=== PATIENT | male | born 2000 | race Caucasian/White ===

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

== ENCOUNTER 2024-12-17 18:53 | Observation (INO) ==
[2024-12-17 19:55] LABS: BASOPHILS % (AUTO) 0.2 % (0.0-3.0); HEMATOCRIT 53.1 % (42.0-52.0); HEMOGLOBIN 19.5 g/dl (14.0-18.0); IMMATURE GRANULOCYTE % (AUTO) 0.2 % (0.0-5.0); LYMPHOCYTES # (AUTO) 0.4 K/uL (0.60-3.4); LYMPHOCYTES % (AUTO) 7.1 (10.0-50.0); MEAN CORPUSCULAR HEMOGLOBIN 31.6 pg (27.0-31.0); MEAN CORPUSCULAR HGB CONC 36.7 (31.8-35.4); MEAN CORPUSCULAR VOLUME 85.9 fl (80.0-94.0); MONOCYTES # (AUTO) 0.4 K/uL (0.4-2.0); MONOCYTES % (AUTO) 6.8 (0-10); NEUTROPHILS % (AUTO) 85.7 % (42.2-75.2); PLATELET COUNT 180 10^3/uL (140-440); RDW COEFFICIENT OF VARIATION 12.3 % (11.6-14.8); RED BLOOD COUNT 6.18 10^6/ul (4.70-6.10); WHITE BLOOD COUNT 5.88 K/ul (4.2-10.2)
--- NOTE | 2024-12-17 20:00 | ED.PDOC ---
General ED Provider: Dr. JOSUÉ WARD DO Chief Complaint: Nausea/Vomiting Stated Complaint: This is a 24-year-old gentleman history of mild autism type 1 diabetes with insulin pump and cerebral palsy who comes to the emergency department with nausea vomiting and ketones. His sugars have been in the 240 range. According to mom she made some store-bought meatballs last night which seems to been a trigger. Father has similar and that he has been having diarrhea and some mild abdominal cramping after eating. Patient has not been able to keep anything down. He denies any diarrhea no fever or chills no abdominal pain but some sore throat from his retching. Time Seen by Provider: 12/17/24 19:36 Information Source: Patient and Family Exam Limitations: No limitations Primary Care Provider: RAJINDER QUIÑONES Nursing and Triage Documentation Reviewed and Agree: Yes What is Opioid Naive?: *Opioid Naive implies the patient is not already taking opioids or not chronically receiving opioids on a daily basis. *PRN dosing is not "usually" associated with tolerance. *Patients are at higher risk of over-sedation and aspiration. What is Opioid Tolerant?: *Opioid Tolerance implies less than the expected response to an opioid. *Acquired tolerance is defined by the patient taking 60mg of oral morphine daily (or equianalgesic dose of another opioid) for 1 week or more. *Often associated with chronic pain. *May take more than usual dose to achieve desired pain control. Review of Systems Review Of Systems Constitutional: Reports No symptoms Ears, Nose, Mouth, Throat: Reports No symptoms Respiratory: Reports No symptoms Cardiac: Reports No symptoms GI: Reports Nausea and Vomiting : Reports No symptoms Musculoskeletal: Reports No symptoms Skin: Reports No symptoms Neurological: Reports No symptoms Endocrine: Reports No symptoms Hematologic/Lymphatic: Reports No symptoms All Other Systems: Reviewed and Negative [facility] Social History Smoking and tobacco status: Never smoker Physical Exam Physical Exam Appearance: Reports Well-appearing, No pain distress and Well-nourished Eyes: Reports RAZIA and EOMI ENT: Reports Oropharynx normal Neck: Supple Respiratory: Reports Airway patent, Breath sounds clear and Breath sounds equal Cardiovascular: Reports RRR, No murmur and Tachycardia GI/: Reports Soft, Nontender and No masses Musculoskeletal: Reports Normal strength and No edema Skin: Reports Warm and Dry Neurological: Reports Sensation intact, Alert and Oriented Psychiatric: Reports Affect appropriate Interpretation EKG Interpretation EKG Interpretation By: ED Physician Time of EKG #1: 21:00 (Twelve-lead EKG is read by me shortly after obtaining sinus rate of 119 with normal axis and intervals there is some diffuse rate related T wave abnormalities no evidence of acute ischemia or infarct no STEMI) Rate: Tachy Critical Care Note Critical Care Note Total Critical Care Time (mins): 50 Comments: I was called to the bedside for urgent evaluation of the patient for an apparent life-threatening event. I arrived to find the patient patricia, type I diabetic, concern for DKA During my initial evaluation I found the patient to be critically Ill and in need of my immediate attention to prevent further deterioration of their condition More than one body system was considered at risk with todays visit. The following are the primary systems identified: Metabolic, GI, cardiac During the patients ED visit I repeated re-evaluated the patient and their clinical condition reviewed laboratory testing and radiology images and intervening when needed. Hydrating patient treating his nausea spoke with his early intervention school psychologist As a result of the patients clinical condition and presenting problem I arranged for observation The total amount of my Critical Care time during the patients course in the ED was a minimum of 50 minutes, this excluded any time spent on other services or procedures Course Course 12/17/24 19:43 12/17/24 22:05 Orders, Labs, Meds: Lab Review 12/17/24 12/17/24 12/17/24 19:43 21:55 22:05 WBC 5.88 RBC 6.18 H Hgb 19.5 H Hct 53.1 H MCV 85.9 MCH 31.6 H MCHC 36.7 H RDW Coeff of Kiarra 12.3 Plt Count 180 Immature Gran % (Auto) 0.2 Neut % (Auto) 85.7 H Lymph % (Auto) 7.1 L Clarke % (Auto) 6.8 Eos % (Auto) 0.0 Baso % (Auto) 0.2 Neut # (Auto) 5.0 Lymph # (Auto) 0.4 L Clarke # (Auto) 0.4 Eos # (Auto) 0.0 Baso # (Auto) 0.0 Immature Gran # (Auto) 0.0 Sodium 143.9 143.9 Potassium 3.95 4.07 Chloride 110.5 H 114.1 H Carbon Dioxide 20.2 L 22.7 Anion Gap 17.15 11.17 BUN 19.8 18.3 Creatinine 0.81 0.81 Estimated GFR (MDRD) 117.00 117.00 BUN/Creatinine Ratio 24.44 22.59 Glucose 150.7 H 100.6 D Lactic Acid 1.07 Calcium 9.20 7.86 L Total Bilirubin 1.56 H AST 25.5 ALT 14.7 Alkaline Phosphatase 85.0 Total Protein 7.19 Albumin 4.67 Globulin 2.52 Albumin/Globulin Ratio 1.85 Lipase 31.5 Urine Color Yellow Urine Clarity Clear Urine pH 5.5 Ur Specific [place] 1.025 Urine Protein Negative Urine Glucose (UA) Negative Urine Ketones 3+ H Urine Blood Negative Urine Nitrite Negative Urine Bilirubin 1+ H Urine Urobilinogen 0.2 Ur Leukocyte Esterase Negative Orders Category Date Time Status ADMIT PATIENT INPATIENT .TO [facility] (MONITORED BED) ADMISSION 12/18/24 00:21 Ordered EKG-(ED ONLY) Stat CARDIO 12/17/24 20:14 Completed BLOOD GLUCOSE MONITORING (MED/SURG) Q4HR CARE 12/18/24 00:21 Ordered GIVE HS SNACK 2100 CARE 12/18/24 00:24 Ordered REMINDER: Give Insulin if Needed Q4HR CARE 12/18/24 00:21 Ordered TELEMETRY MONITORING TELE CARE 12/18/24 00:23 Ordered VITAL SIGNS Q4HR CARE 12/18/24 00:21 Ordered VTE PREVENTION .SCD 24 Hours CARE 12/18/24 00:21 Ordered CLEAR LIQUID DIET DIETARY 12/18/24 Breakfast Ordered HS SNACK DIETARY 12/18/24 Dinner Ordered BMP [BASIC METABOLIC PANEL] Stat LAB 12/17/24 22:05 Completed CBC W/ AUTO DIFF Stat LAB 12/17/24 19:43 Completed CBC W/ AUTO DIFF Timed LAB 12/18/24 06:00 Ordered CMP [COMPREHENSIVE METABOLIC PANEL] Stat LAB 12/17/24 19:43 Completed COMPREHENSIVE METABOLIC PANEL Timed LAB 12/18/24 06:00 Ordered LACTIC ACID Stat LAB 12/17/24 19:43 Completed LIPASE Stat LAB 12/17/24 19:43 Completed UA [URINALYSIS C & S IF INDICATED] Stat LAB 12/17/24 21:55 Completed Acetaminophen [Tylenol] Meds 12/18/24 00:21 Ordered 650 mg PO Q4H PRN Dextrose 5 %-0.45 % NaCl [Dextrose 5%-1/2Ns IV Solution Meds 12/18/24 00:30 Ordered ] 1,000 ml IV 125 mls/hr Ondansetron HCl/Pf [Zofran Sdv] Meds 12/18/24 00:21 Ordered 4 mg IVP Q4HR PRN Ondansetron HCl/Pf [Zofran Sdv] Meds 12/17/24 19:39 Discontinued 8 mg IVP ONCE STA Potassium Chloride/D5-0.45NACL [D5%-1/2Ns-KCl 10 Meq/l Meds 12/17/24 23:50 Active IV Bri] 1,000 ml IV 125 mls/hr Sodium Chloride 0.9% [Sodium Chloride] 1,000 ml Meds 12/17/24 19:39 Discontinued IV BOLUS Sodium Chloride 0.9% [Sodium Chloride] 1,000 ml Meds 12/17/24 21:03 Discontinued IV BOLUS Sodium Chloride 0.9% [Sodium Chloride] 1,000 ml Meds 12/17/24 22:28 Discontinued IV BOLUS RESUSCITATION STATUS Routine OTHERS 12/18/24 00:21 Ordered Medications Generic Name Dose Route Start Last Admin Trade Name Freq PRN Reason Stop Dose Admin Potassium Chloride/Dextrose/Sod Cl 1,000 mls @ 125 mls/hr 12/17/24 23:50 12/18/24 00:07 D5%-1/2ns-Kcl 10 Meq/L Iv Bri IV 12/18/24 07:49 125 mls/hr .Q8H ONE Administration Discontinued Medications Generic Name Dose Route Start Last Admin Trade Name Freq PRN Reason Stop Dose Admin Sodium Chloride 1,000 mls @ 1,000 mls/hr 12/17/24 19:39 12/17/24 21:16 Sodium Chloride IV 12/17/24 20:38 Infused BOLUS ONE Infusion Sodium Chloride 1,000 mls @ 1,000 mls/hr 12/17/24 21:03 12/17/24 22:30 Sodium Chloride IV 12/17/24 22:02 Infused BOLUS ONE Infusion Sodium Chloride 1,000 mls @ 1,000 mls/hr 12/17/24 22:28 12/17/24 23:30 Sodium Chloride IV 12/17/24 23:27 Infused BOLUS ONE Infusion Ondansetron HCl 8 mg 12/17/24 19:39 12/17/24 20:16 Ondansetron Hcl/Pf 4 Mg/2 Ml Sdv IVP 12/17/24 19:40 8 mg ONCE STA Administration 2240 after speaking with the patient's early intervention school psychologist early as the covering provider decided to repeat the basic metabolic profile patient had borderline elevated anion gap at 17 repeat now is 11. Positive ketones in the urine but I do believe that it is related to starvation and not DKA. Currently feeding the patient. Third liter of fluid at the request of his early intervention school psychologist. 2358 Patient's anion gap is improved to 11 I believe the patient's ketones are likely result of starvation and not DKA. However after third liter of fluid the patient remains ketotic in his urine. Remains tachycardic. Case discussed with hospitalist provider who will observation overnight bridge orders placed including fluids Zofran clear liquid diet and repeat laboratory testing for the morning During the patients stay in the Emergency Department, and after a physical exam focused on the patients chief complaint. I have concluded that the patients condition warrants inpatient admission/observation at this time. This decision was made in conjunction with testing done in the ED and after discussing the need for admission with the patient and any family present. This decision was made in conjunction with any testing done, physical exam and information provided by the patient and any family present. I took into consideration discharge but feel that either the patients condition, social supports, access to aftercare, and/or safety justify admission at this time. I have discussed this case with the admitting physician Care was assumed by admitting provider at the time the admission request was placed. I was available for emergencies after that point or if specifically identified here: none This chart was completed using voice recognition dictation software. Please excuse any errors of wind energy mechanic including grammatical, punctuation and spelling errors. Please contact me with any questions regarding this chart Vital Signs: Temp Pulse Resp BP Pulse Ox 12/17/24 18:59 97 F L 138 H 16 110/77 93 L Discharge Plan Discharge Patient Disposition: PLACED OBSERVATION Discharge Problem: Nausea, Vomiting, Acute hyperglycemia, Ketosis, Tachycardia Prescriptions: No Action citalopram [Celexa] 20 MG tablet 20 mg PO QAM albuterol sulfate 8.5 GM HFA aerosol inhaler 2 puff INH PRN PRN (Reason: Asthma) Humalog U-100 Insulin 100 UNIT/ML cartridge 1 units SQ DIRECTED Patient Comments: SS insulin with meals omeprazole magnesium [Prilosec OTC] 20 MG tablet,delayed release (DR/EC) 20 mg PO QAM clonidine HCl 0.1 MG tablet extended release 12 hr 0.2 mg PO BEDTIME venlafaxine [Effexor XR] 37.5 MG capsule,extended release 24hr 75 mg PO DAILY clonidine HCl 0.1 MG tablet 0.1 mg PO DAILY PRN (Reason: Agitation) Flonase Sensimist 9.9 ML spray,suspension 1 spray intranasal DAILY Rx Instructions: 1 spray each notril Mounjaro 5 mg/0.5 mL pen injector 5 mg SUBCUT WEEKLY Patient Comments: [NO ORIGINAL SIG] venlafaxine 150 mg capsule,extended release 24hr 300 mg PO DAILY doxycycline monohydrate 100 mg capsule 100 mg PO .every other night omeprazole 20 mg capsule,delayed release(DR/EC) 20 mg PO DAILY Did you review [place] [employer] for ALL controlled substances?: Not Applicable ED Provider: JOSUÉ WARD
[2024-12-17 20:02] LABS: ALANINE AMINOTRANSFERASE 14.7 U/L (0-50); ALBUMIN 4.67 g/dL (3.5-5.0); ASPARTATE AMINO TRANSFERASE 25.5 U/L (17-59); BILIRUBIN,TOTAL 1.56 mg/dL (0.2-1.3); BLOOD UREA NITROGEN 19.8 mg/dL (9-20); CALCIUM 9.2 mg/dL (8.4-10.2); CARBON DIOXIDE 20.2 mmol/L (22-30.0); CHLORIDE 110.5 mmol/L (98-107); CREATININE 0.81 mg/dL (0.60-1.10); GLUCOSE 150.7 mg/dL (74-106); LIPASE 31.5 U/L (23-300); POTASSIUM 3.95 mmol/L (3.5-5.1); SODIUM 143.9 mmol/L (134.5-145); TOTAL PROTEIN 7.19 g/dL (6.3-8.2)
[2024-12-17] MEDS: SODIUM CHLORIDE 1,000 ML IV ONE ×3 (20:16→22:30)
[2024-12-17] MEDS: ZOFRAN SDV IVP STA (20:16)
[2024-12-17 21:59] LABS: BILIRUBIN,URINE 1+ (NEGATIVE); CLARITY,URINE Clear (CLEAR); COLOR,URINE Yellow (YELLOW); GLUCOSE, URINE (UA) Negative (NEGATIVE); KETONES,URINE 3+ (NEGATIVE); LEUKOCYTE ESTERASE ,URINE Negative (NEGATIVE); NITRITE,URINE Negative (NEGATIVE); PH,URINE 5.5 (5-9); PROTEIN,URINE Negative (NEGATIVE); URINE, BLOOD Negative (NEGATIVE); UROBILINOGEN,URINE 0.2 (0.2)
[2024-12-17 22:38] LABS: BLOOD UREA NITROGEN 18.3 mg/dL (9-20); CALCIUM 7.86 mg/dL (8.4-10.2); CARBON DIOXIDE 22.7 mmol/L (22-30.0); CHLORIDE 114.1 mmol/L (98-107); CREATININE 0.81 mg/dL (0.60-1.10); GLUCOSE 100.6 mg/dL (74-106); POTASSIUM 4.07 mmol/L (3.5-5.1); SODIUM 143.9 mmol/L (134.5-145)
[2024-12-18] MEDS: D5%-1/2NS-KCL 10 MEQ/L IV SOL 1,000 ML IV ONE (00:07)
[2024-12-18] MEDS ORDERED: ZOFRAN SDV IVP PRN (00:21)
[2024-12-18 00:59] LABS: SARS COV-2 RNA RAPID NAAT NEGATIVE (NEGATIVE)
[2024-12-18 01:57] VITALS: BMI 23.3
[2024-12-18 04:59] LABS: BASOPHILS % (AUTO) 0.2 % (0.0-3.0); HEMATOCRIT 42.3 % (42.0-52.0); HEMOGLOBIN 14.7 g/dl (14.0-18.0); LYMPHOCYTES # (AUTO) 0.9 K/uL (0.60-3.4); LYMPHOCYTES % (AUTO) 19.8 (10.0-50.0); MEAN CORPUSCULAR HEMOGLOBIN 30.9 pg (27.0-31.0); MEAN CORPUSCULAR HGB CONC 34.8 (31.8-35.4); MEAN CORPUSCULAR VOLUME 88.9 fl (80.0-94.0); MONOCYTES # (AUTO) 0.4 K/uL (0.4-2.0); MONOCYTES % (AUTO) 8.2 (0-10); NEUTROPHILS # (AUTO) 3.3 K/ul (2.0-6.9); NEUTROPHILS % (AUTO) 71.8 % (42.2-75.2); PLATELET COUNT 144 10^3/uL (140-440); RDW COEFFICIENT OF VARIATION 12.5 % (11.6-14.8); RED BLOOD COUNT 4.76 10^6/ul (4.70-6.10); WHITE BLOOD COUNT 4.64 K/ul (4.2-10.2)
[2024-12-18 05:13] LABS: ALANINE AMINOTRANSFERASE 12.6 U/L (0-50); ALBUMIN 3.28 g/dL (3.5-5.0); ALKALINE PHOSPHATASE 55.9 U/L (38-126); BILIRUBIN,TOTAL 0.96 mg/dL (0.2-1.3); BLOOD UREA NITROGEN 12.7 mg/dL (9-20); CALCIUM 7.67 mg/dL (8.4-10.2); CHLORIDE 109.3 mmol/L (98-107); CREATININE 0.83 mg/dL (0.60-1.10); GLUCOSE 112.9 mg/dL (74-106); POTASSIUM 3.91 mmol/L (3.5-5.1); SODIUM 140.6 mmol/L (134.5-145); TOTAL PROTEIN 5.39 g/dL (6.3-8.2)
[2024-12-18 05:22] VITALS: RESP 16
[2024-12-18] MEDS: DEXTROSE 5%-1/2NS IV SOLUTION 1,000 ML IV SCH (07:35)
[2024-12-18] MEDS: TYLENOL PO PRN (07:47)
--- NOTE | 2024-12-18 09:48 | PCM.SS ---
Provider Provider[facility] GENET MCKEON[facility] Date Admission Date: 12/18/24 Discharge Date Discharge Date: 12/18/24 Primary Care Physician Primary Care Physician: RAJINDER QUIÑONES Chief Complaint Reason For Visit: HYPERGLYCEMIA,KETOSIS,MV,TOCHYCARDIA History of Present Illness History of Present Illness: Admitted 12/18/24 00:59, this 24 year old /WHITE/M with pmh of CP, DM1, GERD, and asthma presented to the ER with complaints of N/V. Mother at bedside reports she bought some meatballs yesterday morning at [employer]. Her and the patient ate them yesterday evening and said they tasted odd. Vomiting started within a couple hours after ingestion. Denies diarrhea, fever, or other symptoms. Patient denies any abdominal pain. Patient had 3+ ketones in urine. HR running 110s-120s despite fluid resuscitation given in ER. Admitted to med/surg observation. [facility] Medical History Diabetes type 1, controlled E10.9 - Type 1 diabetes mellitus without complications (ICD-10) Anxiety F41.9 - Anxiety disorder, unspecified (ICD-10) Microencephaly Q02 - Microcephaly (ICD-10) Cerebral palsy G80.9 - Cerebral palsy, unspecified (ICD-10) Autism F84.0 - Autistic disorder (ICD-10) Surgical History Hx of eye surgery Z98.890 - Other specified postprocedural states (ICD-10) Social History Smoking and tobacco status: Never smoker Medications Mecications: Medications at Discharge (Home Meds & RX) albuterol sulfate 90 mcg/actuation aerosol inhaler 2 puff INH PRN PRN Asthma 07/17/13 citalopram 20 mg tablet (Celexa) 20 mg PO QAM 07/17/13 insulin lispro 100 unit/mL subcutaneous cartridge (Humalog U-100 Insulin) 1 units SQ DIRECTED 07/17/13 omeprazole magnesium 20 mg tablet,delayed release (Prilosec OTC) 20 mg PO QAM 07/17/13 clonidine HCl 0.1 mg tablet 0.1 mg PO DAILY PRN Agitation 10/21/16 clonidine HCl 0.1 mg tablet,extended release,12 hr 0.2 mg PO BEDTIME 10/21/16 venlafaxine 37.5 mg capsule,extended release 24 hr (Effexor XR) 75 mg PO DAILY 10/21/16 fluticasone furoate 27.5 mcg/actuation nasal spray,suspension (Flonase Sensimist) 1 spray intranasal DAILY 09/08/17 doxycycline monohydrate 100 mg capsule 100 mg PO .every other night 12/17/24 omeprazole 20 mg capsule,delayed release 20 mg PO DAILY 12/17/24 tirzepatide 5 mg/0.5 mL subcutaneous pen injector (Mounjaro) 5 mg subcut WEEKLY 12/17/24 venlafaxine 150 mg capsule,extended release 24 hr 300 mg PO DAILY 12/17/24 Allergies Allergies Allergy/AdvReac Type Severity Reaction Status Date / Time No Known Allergies Allergy Verified 12/17/24 19:19 Review of Systems Constitutional: Reports No symptoms Eyes: Reports No symptoms Ears: Reports No symptoms Nose: Reports No symptoms Mouth: Reports No symptoms Throat: Reports No symptoms Cardiovascular: Reports No symptoms Respiratory: Reports No symptoms Gastrointestinal: Reports Nausea and Vomiting Genitourinary: Reports No Symptoms Musculoskeletal: Reports No symptoms Endocrine: Reports No symptoms Hematology: Reports No symptoms Immunology: Reports No symptoms Neurological: Reports No symptoms Psychiatric: Reports No symptoms Physical Examination Appearance: Positive No Apparent Distress and Alert and Oriented x3 Neck: Positive Supple, Non-Tender and Trachea Midline Heart: Positive RRR and No Murmurs Respiratory: Positive Airway patent, Breath Sounds Clear, Bilaterally, Breath Sounds Equal and Respirations Nonlabored GI/: Positive Soft, Nontender, Bowel sounds normal, No Distention, No masses and No Organomegaly Extremities: Positive Pedal Pulses Palpable Bilaterally Neurological: Positive Sensation Intact, Motor Intact, Reflexes Intact, Alert and Oriented Vital Signs (Last 4 Hours) Vital Signs Last 4 Hours: Vital Signs: Last 4 Hours 12/18/24 07:00 12/18/24 07:00 12/18/24 07:57 Pulse Rate [Apical] Oxygen Delivery Method Room Air Room Air Telemetry Type Remote Telemetry Telemetry Monitoring Continues Telemetry Heart Rate 103 H EKG LA Interval 0.12 EKG QRS Interval 0.03 L Telemetry Strip Reading ST 12/18/24 08:00 12/18/24 09:00 Pulse Rate [Apical] 103 H Oxygen Delivery Method Room Air Room Air Telemetry Type Telemetry Monitoring Telemetry Heart Rate EKG LA Interval EKG QRS Interval Telemetry Strip Reading Labs This Visit Labs This Visit: Labs This Visit 12/17/24 12/17/24 12/17/24 19:43 21:55 22:05 WBC 5.88 RBC 6.18 H Hgb 19.5 H Hct 53.1 H MCV 85.9 MCH 31.6 H MCHC 36.7 H RDW Coeff of [place] 12.3 Plt Count 180 Immature Gran % (Auto) 0.2 Neut % (Auto) 85.7 H Lymph % (Auto) 7.1 L [place] % (Auto) 6.8 Eos % (Auto) 0.0 Baso % (Auto) 0.2 Neut # (Auto) 5.0 Lymph # (Auto) 0.4 L [place] # (Auto) 0.4 Eos # (Auto) 0.0 Baso # (Auto) 0.0 Immature Gran # (Auto) 0.0 Sodium 143.9 143.9 Potassium 3.95 4.07 Chloride 110.5 H 114.1 H Carbon Dioxide 20.2 L 22.7 Anion Gap 17.15 11.17 BUN 19.8 18.3 Creatinine 0.81 0.81 Estimated GFR (MDRD) 117.00 117.00 BUN/Creatinine Ratio 24.44 22.59 Glucose 150.7 H 100.6 D Lactic Acid 1.07 Calcium 9.20 7.86 L Total Bilirubin 1.56 H AST 25.5 ALT 14.7 Alkaline Phosphatase 85.0 Total Protein 7.19 Albumin 4.67 Globulin 2.52 Albumin/Globulin Ratio 1.85 Lipase 31.5 Urine Color Yellow Urine Clarity Clear Urine pH 5.5 Ur Specific [place] 1.025 Urine Protein Negative Urine Glucose (UA) Negative Urine Ketones 3+ H Urine Blood Negative Urine Nitrite Negative Urine Bilirubin 1+ H Urine Urobilinogen 0.2 Ur Leukocyte Esterase Negative SARS CoV-2 RNA Rapid HESHAM 12/18/24 12/18/24 00:30 04:53 WBC 4.64 RBC 4.76 Hgb 14.7 D Hct 42.3 D MCV 88.9 MCH 30.9 MCHC 34.8 RDW Coeff of [place] 12.5 Plt Count 144 Immature Gran % (Auto) 0.0 Neut % (Auto) 71.8 Lymph % (Auto) 19.8 [place] % (Auto) 8.2 Eos % (Auto) 0.0 Baso % (Auto) 0.2 Neut # (Auto) 3.3 Lymph # (Auto) 0.9 [place] # (Auto) 0.4 Eos # (Auto) 0.0 Baso # (Auto) 0.0 Immature Gran # (Auto) 0.0 Sodium 140.6 Potassium 3.91 Chloride 109.3 H Carbon Dioxide 24.0 Anion Gap 11.21 BUN 12.7 Creatinine 0.83 Estimated GFR (MDRD) 114.00 BUN/Creatinine Ratio 15.30 Glucose 112.9 H Lactic Acid Calcium 7.67 L Total Bilirubin 0.96 AST 20.0 ALT 12.6 Alkaline Phosphatase 55.9 D Total Protein 5.39 L Albumin 3.28 L Globulin 2.11 Albumin/Globulin Ratio 1.55 Lipase Urine Color Urine Clarity Urine pH Ur Specific [place] Urine Protein Urine Glucose (UA) Urine Ketones Urine Blood Urine Nitrite Urine Bilirubin Urine Urobilinogen Ur Leukocyte Esterase SARS CoV-2 RNA Rapid HESHAM Negative Review Review Statement: I have independently reviewed and interpreted the labs/EKGs/imaging that were ordered by the ER provider. I have reviewed all outside records that are availa ble currently in our EMR including imaging/notes/labs from previous visits. Plan Reccomendations/Plan: 1. Gastroenteritis - IV fluids given overnight, accuchecks Q4H, clear liquid diet tolerated, advanced diet for lunch and tolerated well 2. Sinus Tachycardia - likely due to dehydration, HR down into 90s this am Additional Planning: Case discussed with ED Physician, Dr. Rosado. DVT Prophylaxis: Ambulation Advanced Care Plannin minutes spent discussing advance care planning. Disposition: Admit to: Med/Surg Observation Full Code Discussed Plan of Care with Dr. Charlene Reynoso. If patient discharged with Left Ventricular Systolic Dysfunction: no Discharged with a beta max? [] If no, why not? [] Discharged with an debbie/arb? [] If no, why not? [] Diagnosis: Gastroenteritis, Dehydration Diet: Diabetic Activity: as tolerated Medications: Follow-up with PCP in 1-2 weeks Review With Patient Reviewed with Patient and Family: Patient and family have been counseled on condition and care plan and have no immediate questions. I have personally discussed and reviewed the patient's visit/current labs/imaging/decision making with Dr. Mana Reynoso, my supervising attending. Total number of minutes spent with patient 85 min. More than 50% of the time spent with this patient was devoted to counseling and coordination of care. Time of Admission:12/18/24 00:59 Time of Discharge: Discharge Plan Discharge Discharge Orders: Discharge Patient (ONCE); Ordered 12/18/24 Ordered By: YESENIA WHITT Activity Restrictions/Additional Instructions: Diagnosis: Gastroenteritis, Dehydration Diet: Diabetic Activity: as tolerated Medications: * Zofran 4 mg may take every 6-8 hours as needed for nausea/vomiting. Follow-up with PCP in 1-2 weeks Instructions: Gastroenteritis (GEN) Patient Disposition: HOME WITH FAMILY CARE Prescriptions: New ondansetron 4 mg tablet,disintegrating 4 mg PO Q6H PRN (Reason: nausea and vomiting) Qty: 20 0RF Continued citalopram [Celexa] 20 MG tablet 20 mg PO QAM albuterol sulfate 8.5 GM HFA aerosol inhaler 2 puff INH PRN PRN (Reason: Asthma) Humalog U-100 Insulin 100 UNIT/ML cartridge 1 units SQ DIRECTED Patient Comments: SS insulin with meals omeprazole magnesium [Prilosec OTC] 20 MG tablet,delayed release (DR/EC) 20 mg PO QAM clonidine HCl 0.1 MG tablet extended release 12 hr 0.2 mg PO BEDTIME venlafaxine [Effexor XR] 37.5 MG capsule,extended release 24hr 75 mg PO DAILY clonidine HCl 0.1 MG tablet 0.1 mg PO DAILY PRN (Reason: Agitation) Flonase Sensimist 9.9 ML spray,suspension 1 spray intranasal DAILY Rx Instructions: 1 spray each notril Mounjaro 5 mg/0.5 mL pen injector 5 mg SUBCUT WEEKLY Patient Comments: [NO ORIGINAL SIG] venlafaxine 150 mg capsule,extended release 24hr 300 mg PO DAILY doxycycline monohydrate 100 mg capsule 100 mg PO .every other night omeprazole 20 mg capsule,delayed release(DR/EC) 20 mg PO DAILY Did you review [place] for ALL controlled substances?: No Discussed opioids are addictive and Narcan is available by prescription or from pharmacy.: No Condition: Fair
[2024-12-18 09:58] VITALS: BP 114/72; PULSE 108; TEMP 97.5
== END 2024-12-18 12:45 | disposition home or self-care (01) ==
LOC: ED 18:53 → MEDSURG B 18:53
PROVIDERS: ADMIT Hospitalist; ATTEND Nurse Practitioner Family